=== PATIENT | female | born 1940 | race Caucasian/White ===

== ENCOUNTER → 2016-06-21 | Outpatient (REF) | payer MEDICARE ==
[~2016-06-21] MED LIST: ACET65TA PO; ALB2.5NEB INH; ALBU17IN2 INH; ALBU83IN INH; AMLO10TA2 PO; ASPI1TAB PO; ASPI81TA3 PO; ATOR40TA PO; AVEL1TAB PO; BISA5TAB7 PO; CALC600T21 PO; CHERSYP3 PO; CIPR500T89 PO; CLOP75TA2 PO; CRES40TA PO; DILA100C PO; FISH300C2 PO; FOLI1TAB2 PO; FOLI1TAB86 PO; GABA-279 PO; GARL1000 PO; GARLIC PO; K-TA10TA PO; LEVA500T PO; LIDO5TD TD; LOSA100T36 PO; MICR10CA PO; MOXI1TAB PO; MS C30TA2; NITR4TASL SL; PLAV75TA2; PLAV75TA2 PO; POTA75TA PO; PRED10TA PO; PRED10TA2 PO; PROA1AER INH; PULM0.5S INH; ROBISYP5 PO; ROCA0.5C PO; SPIR1CAP IN; SPIRIVA INH; TYLE167L PO; TYLE325T5 PO; Tizanidine Hcl PO; VICO5TAB; ZIAC1TAB PO; ZIAC2.5T PO; ZITH500T PO
== END ==
LOC: M LAB REF 13:08
PROVIDERS: ATTEND Internal Medicine
DX: G40.309 Generalized idiopathic epilepsy and epileptic syndromes, not intractable, without status epilepticus (principal)

== ENCOUNTER → 2016-06-28 | Outpatient (CLI) | payer MEDICARE ==
[~2016-06-28] MED LIST changes: +ACET30TAB PO; +MACR25CA2 PO; +ZOFR4TAB3 PO
--- NOTE | 2016-06-28 14:03 | REP ---
PA CHEST WITH LEFT RIBS: 06/28/2016. Clinical history: Intercostal pain. Comparison portable chest 09/25/2015, two-view chest 04/14/2014. Findings: PA chest: A dual lead pacer over the left midchest with leads in the right atrium and right ventricle, all unchanged. Lungs are hyperinflated. There is minor linear fibrotic change peripherally in the left lower lung zone. There is no dense consolidation or pleural effusion. Minor apical pleural thickening or scar. No cardiomegaly, edema or other acute finding. The aorta is calcified at the arch. The jacob are prominent centrally suggesting some degree of pulmonary hypertension unchanged. Bones demineralized. Left ribs: Four views show the clavicle, scapula, left shoulder and visualized right sided structures on the PA view as well as the oblique views of the ribs to be without fracture, pleural thickening, pleural effusion or pneumothorax. Impression: 1. Some hyperinflation with COPD and curvilinear fibrotic changes in the left base. There is no cardiomegaly, edema, effusion or acute infiltrate. 2. Multilead pacer over the left chest. 3. No visible or displaced rib fracture, focal rib lesion, pneumothorax or other acute finding. Signed by Kamari Medina MD 06/28/2016 03:31 P
== END ==
LOC: M ADAMS 10:41
PROVIDERS: ATTEND Physician Assistant Medical
DX: R10.9 Unspecified abdominal pain (principal); R07.82 Intercostal pain; Z95.0 Presence of cardiac pacemaker; J44.9 Chronic obstructive pulmonary disease, unspecified

== ENCOUNTER → 2016-07-01 | Outpatient (REF) | payer MEDICARE | LOC: M LAB REF 09:56 | PROVIDERS: ATTEND Physician Assistant | DX: N39.0 Urinary tract infection, site not specified (principal) ==

== ENCOUNTER 2016-07-03 10:08 | Emergency (ER) | payer MEDICARE ==
[~2016-07-03] VITALS: Ht 160 cm; Wt 68.0 kg
[~2016-07-03 10:08] MED LIST changes: -ACET30TAB PO; -MACR25CA2 PO; -ZOFR4TAB3 PO
[2016-07-03 10:10] VITALS: BP 152/88
[2016-07-03] MEDS ORDERED: MACR25CA2 PO (10:25)
[2016-07-03] MEDS ORDERED: NS 500 ML IV ONE (10:45)
[2016-07-03] MEDS ORDERED: KETOROLAC 30 MG/ML VIAL (J1885) IV ONE (10:45)
--- NOTE | 2016-07-03 11:27 | REP ---
CT study of the abdomen and pelvis without IV or oral contrast: Renal stone protocol. History: Left flank pain. Comparison CT study is from October 05, 2015. CT findings: The lung bases show mild linear fibrosis in the right lower lobe but are otherwise clear. Digital talent scout radiograph shows an unremarkable bowel gas pattern. There is a pacemaker in the right heart. There is a cyst in the upper pole of the right kidney measuring 2.2 cm in greatest diameter. Fairly extensive vascular calcification is noted. There are multiple new low density areas in the liver compatible with metastatic disease. These range in size up to 2.6 cm. There are distributed in the left and right hepatic lobes. No adrenal lesion is seen. There is a ill-defined mass in the proximal body of the pancreas with adjacent lymphadenopathy. There is atrophy of the tail of the pancreas. The findings are very suspicious for pancreatic carcinoma. Periaortic adenopathy is seen. There is a left periaortic lymph node at the level of the left renal artery origin measuring 1.4 x 1.5 cm. An infrarenal abdominal aortic aneurysm is seen measuring 3.0 cm in AP dimension. Previously 3.1 cm at this level by my measurement. There is some old fibrosis in the paracolic gutter on the right. No abdominal wall defect is seen. No bony destructive lesion is appreciated. Impression: Findings compatible with pancreatic carcinoma with regional lymphadenopathy and multiple hepatic metastases. Recommend dedicated pancreatic CT study. Calcified gallstones in the gallbladder. Stable 3 cm abdominal aortic aneurysm. Stable right renal cyst. Signed by Carlos Enrique Levy MD 07/03/2016 12:09 P
[2016-07-03 11:44] LABS: BASO % 0.4 % (0.0-1.0); EOS # 0.2 K/mm3 (0.0-0.50); EOS % 2.6 % (0.0-3.0); LARGE UNSTAINED CELL # 0.1 K/mm3 (0.0-0.4); LARGE UNSTAINED CELL % 1.6 % (0.0-4.0); LYMPH # 0.8 K/mm3 (1.5-4.5); MEAN CORPUSCULAR HGB CONC 34.1 g/dl (32.0-36.5); MEAN CORPUSCULAR VOLUME 96.6 fl (80.0-96.0); MONO # 0.4 K/mm3 (0.0-0.8); MONO % 6.4 % (0.0-5.0); NEUTROPHILS # 5.2 K/mm3 (1.8-7.7); NEUTROPHILS % 78.1 % (36.0-66.0); PLATELET COUNT, AUTOMATED 199 k/mm3 (150-450); RED CELL DISTRIBUTION WIDTH 13.5 % (11.5-14.5); WHITE BLOOD COUNT 6.7 K/mm3 (4.0-10.0)
[2016-07-03 11:51] LABS: INR 1.01
[2016-07-03 12:20] LABS: ALBUMIN 3.6 GM/DL (3.2-5.2); ALBUMIN/GLOBULIN RATIO 0.77 (1.00-1.93); ALKALINE PHOSPHATASE 179 U/L (45-117); ALT/SGPT 29 U/L (12-78); ANION GAP 5 MEQ/L (8-16); AST/SGOT 40 U/L (15-37); BILIRUBIN,DIRECT < 0.1 MG/DL (0.0-0.2); BILIRUBIN,TOTAL 0.3 MG/DL (0.2-1.0); BLOOD UREA NITROGEN 31 MG/DL (7-18); CARBON DIOXIDE LEVEL 29 MEQ/L (21-32); CHLORIDE LEVEL 99 MEQ/L (98-107); GLOMERULAR FILTRATION RATE 27.3 (>39); GLUCOSE, FASTING 113 MG/DL (83-110); POTASSIUM SERUM 3.9 MEQ/L (3.5-5.1); SODIUM LEVEL 133 MEQ/L (136-145); TOTAL PROTEIN 8.3 GM/DL (6.4-8.2)
[2016-07-03] MEDS ORDERED: ZOFR4TAB3 PO (13:45)
[2016-07-03] MEDS ORDERED: ACET30TAB PO (13:47)
--- NOTE | 2016-07-04 04:55 | ECGEPIP ---
Stationary ECG Study [facility] - ED Test Date: 2016-07-03 Pat Name: HECTOR MANCIA Department: Room: - Gender: F Dry Cleaner: rn : 1940 Requested By: Andrew Bonilla PA-C Order Number: [id number] Reading MD: Dgao Goldberg Measurements Intervals [place] Rate: 71 P: 9 TN: 164 QRS: -10 QRSD: 84 T: 51 QT: 405 QTc: 442 Interpretive Statements SINUS RHYTHM PRWP SIMILAR TO 09/25/15 Electronically Signed On 07-04-2016 4:55:26 EDT by Dago Goldberg
--- NOTE | 2016-07-05 09:32 | ED PDOC ---
Post-Departure Follow-Up dr gregg faxed formal report of ct abd/p for fu Lainey Moise MD Jul 05, 2016 09:32
== END 2016-07-03 14:12 | disposition home or self-care (01) ==
LOC: M ED 10:47
DX: C25.9 Malignant neoplasm of pancreas, unspecified (principal); M54.5 Low back pain; N39.0 Urinary tract infection, site not specified; I12.9 Hypertensive chronic kidney disease with stage 1 through stage 4 chronic kidney disease, or unspecified chronic kidney disease; E78.00 Pure hypercholesterolemia, unspecified; N18.3 Chronic kidney disease, stage 3 (moderate); F32.9 Major depressive disorder, single episode, unspecified; Z87.891 Personal history of nicotine dependence; Z91.040 Latex allergy status; Z79.899 Other long term (current) drug therapy; Z79.02 Long term (current) use of antithrombotics/antiplatelets; Z79.82 Long term (current) use of aspirin; Z79.2 Long term (current) use of antibiotics; Z95.0 Presence of cardiac pacemaker; Z95.5 Presence of coronary angioplasty implant and graft
CPT/HCPCS: 74176; 80048; 80076; 81001; 82550; 82553; 83605; 83690; 84484; 85025; 85610; 85730; 87086; 93005; 96374; 99283; J1885

== ENCOUNTER → 2016-07-10 | Outpatient (REF) | payer MEDICARE ==
[~2016-07-10] MED LIST changes: +ACET30TAB PO; +MACR25CA2 PO; +ZOFR4TAB3 PO
== END ==
LOC: M LAB REF 12:59
PROVIDERS: ATTEND Internal Medicine Medical Oncology
DX: C25.9 Malignant neoplasm of pancreas, unspecified (principal)